=== PATIENT | female | born 1985 | race Two or more races ===

== ENCOUNTER 2024-07-13 03:38 | Inpatient (IN) | payer MEDICAID ==
[~2024-07-13] VITALS: Ht 170.2 cm; Wt 77.3 kg
[~2024-07-13 03:38] MED LIST: BENZ2TAB50 PO; GLIM1TAB PO; HAL5T PO; HYDR10SY18 PO; LISI20TA56 PO; RIS1T PO
--- NOTE | 2024-07-13 03:55 | ED.PDOC ---
History of Present Illness HPI Comments 39 year old female presents to the ED via EMS with a chief complaint of near syncope onset today (07/13/24). Mother states patient got up to use restroom, called out for mother due to patient not being able to walk, experienced near syncope episode. Mother states patient had been experiencing RT ear pain, he adache, nausea, constipation, loss of appetite for the past 4 days. Patient took Ibuprofen yesterday, had temporary relief of symptoms, has been refusing medication for the past 4 days. Upon ED arrival BS was 408, BP 90/50. Patient has a PMHx schizophrenia, is a poor historian. No other symptoms or modifying factors present at this time. Time Seen by MD: 03:50 Primary Care Provider: UNKNOWN Reviewed Notes: Medications, Allergies Allergies: Coded Allergies: NO KNOWN ALLERGIES (Unverified , 07/13/24) Home Meds Active Scripts Lisinopril (Lisinopril) 20 Mg Tab, 1 TAB PO DAILY for 30 Days, #30 TAB 5 Refills Prov:PORSHA ADEN MD 01/15/23 Glimepiride (Amaryl) 1 Mg Tab, 1 TAB PO BID for 30 Days, #60 TAB 5 Refills Prov:PORSHA ADEN MD 01/15/23 Hydroxyzine Hcl (Hydroxyzine Hcl) 10 Mg/5 Ml Syp, 10 MG PO TID for 30 Days, #90 TAB Prov:PORSHA ADEN MD 01/15/23 Risperidone (RisperDAL TABLET) 1 Mg Tb, 1 TAB PO QPM for 30 Days, #30 TAB 1 Refill Prov:PORSHA ADEN MD 01/15/23 Benztropine Mesylate (Benztropine Mesylate) 2 Mg Tab, 1 TAB PO BID for 30 Days, #60 TAB 1 Refill Prov:PORSHA ADEN MD 01/15/23 Haloperidol (Haldol) 5 Mg Tb, 1 TAB PO QPM for 30 Days, #30 TAB 1 Refill Prov:PORSHA ADEN MD 01/15/23 Information Source: Relative, Emergency Med Personnel Mode of Arrival: Ambulatory Severity: Moderate Timing: Days Duration: Since onset Prehospital treatment: IVF Past Medical History PAST MEDICAL HISTORY: Schizophrenia Surgical History: Unknown ASSOCIATE MEDICAL DIRECTOR History: Unknown Family History Family History: Unknown Social History Smoker: Non-Smoker Alcohol: Denies ETOH Use Drugs: Denies Drug Use Lives In: Home Constitutional: denies: chills, diaphoresis, fatigue, fever, malaise, sweats, weakness, others EENTM: reports: ear pain (RT); denies: blurred vision, double vision, ear blee ding, ear discharge, ear drainage, ear ringing, eye pain, eye redness, hearing loss, mouth pain, mouth swelling, nasal discharge, nose bleeding, nose congestion, nose pain, photophobia, tearing, throat pain, throat swelling, voice changes, others Respiratory: denies: cough, hemoptysis, orthopnea, SOB at rest, shortness of breath, SOB with excertion, stridor, wheezing, others Cardiovascular: denies: chest pain, dizzy spells, diaphoresis, Dyspnea on exertion, edema, irregular heart beat, left arm pain, lightheadedness, palpitations, PND, syncope, others Gastrointestinal: reports: constipated, nausea; denies: abdomen distended, abdominal pain, blood streaked bowels, diarrhea, dysphagia, difficulty swallowing, hematemesis, melena, poor appetite, poor fluid intake, rectal bleeding, rectal pain, vomiting, others Genitourinary: denies: abnormal vagina bleeding, burning, dyspareunia, dysuria, flank pain, frequency, hematuria, incontinence, pain, , vagina discharge, urgency, others Neurological: reports: headache, others (near syncope); denies: dizziness, fainting, left sided numbness, left sided weakness, numbness, paresthesia, pre- existing deficit, right sided numbness, right sided weakness, seizure, speech problems, tingling, tremors, weakness Musculoskeletal: denies: back pain, gout, joint pain, joint swelling, muscle pain, muscle stiffness, neck pain, others Integumetry: denies: bruises, change in color, change in hair/nails, dryness, laceration, lesions, lumps, rash, wounds, others Allergic/Immunocompromised: denies: Difficulty Healing, Frequent Infections, Hives, Itching, others Hematologic/Lymphatic: denies: anemia, blood clots, easy bleeding, easy bruising, swollen glands, others Endocrine: denies: excessive hunger, excessive sweating, excessive thirst, excessive urination, flushing, intolerance to cold, intolerance to heat, unexpla ined weight gain, unexplained weight loss, others Psychiatric: denies: anxiety, bipolar disorder, depression, hopeless, panic disorder, schizophrenia, sleepless, suicidal, others All Other Systems: Reviewed and Negative Physical Exam General Appearance: Normal HEENT: Normal ENT Inspection, Pharynx Normal, TMs Normal Neck: Full Range of Motion, Non-Tender, Normal, Normal Inspection Respiratory: Chest Non-Tender, Lungs Clear, No Accessory Muscle Use, No Respiratory Distress, Normal Breath Sounds Cardiovascular: No Edema, No JVD, No Murmur, No Gallop, Normal Peripheral Pulses, Regular Rate/Rhythm Breast Exam: Deferred Gastrointestinal: No Organomegaly, Non Tender, No Pulsatile Mass, Normal Bowel Sounds, Soft Genitalia: Deferred Pelvic: Deferred Rectal: Deferred Extremities: No calf tenderness, Normal capillary refill, Normal inspection, Normal range of motion, Non-tender, No pedal edema Musculoskeletal : Apperance: Normal Neurologic: Other (flat affect) Cerebellar Function: Normal Reflexes: Normal Skin: Dry, Normal Color, Warm Lymphatic: No Adenopathy Was a procedure done? Was a procedure done?: No Differential Dx Considerations may include: Differential diagnosis includes but is not limited to: cardiac arrythmia, dehydration, sepsis, electrolyte abnormality, symptomatic anemia, hypovolemia and others X-Ray, Labs, Meds, VS Vital Signs Date Time Temp Pulse Resp B/P (MAP) Pulse Ox O2 Delivery O2 Flow Rate FiO2 07/13/24 05:14 91 14 109/72 07/13/24 03:45 98.5 100 14 90/58 (69) 98 98.5 07/13/24 03:40 97 Lab Test 07/13/24 04:27 07/13/24 04:04 Range/Units POC Glucose 392 H 70-106 mg/dl White Blood Count 11.0 H 4.4-10.8 10^3/uL Red Blood Count 4.62 4.0-5.20 10^6/uL Hemoglobin 13.1 12.2-16.2 g/dL Hematocrit 38.7 36.0-46.0 % Mean Corpuscular Volume 83.8 80.0-100.0 fL Mean Corpuscular Hemoglobin 28.3 28.0-32.0 pg Mean Corpuscular Hemoglobin Concent 33.8 32.0-36.0 g/dL Red Cell Distribution Width 14.5 H 11.8-14.3 % Platelet Count 294 140-450 10^3/uL Mean Platelet Volume 9.2 6.9-10.8 fL Neutrophils (%) (Auto) 73.5 37.0-80.0 % Lymphocytes (%) (Auto) 10.9 10.0-50.0 % Monocytes (%) (Auto) 14.6 H 0.0-12.0 % Eosinophils (%) (Auto) 0.2 0.0-7.0 % Basophils (%) (Auto) 0.8 0.0-2.0 % Neutrophils # (Auto) 8.1 1.6-8.6 10 ^3/uL Lymphocytes # (Auto) 1.2 0.4-5.4 10 ^3/uL Monocytes # (Auto) 1.6 H 0-1.3 10 ^3/uL Eosinophils # (Auto) 0 0-0.8 10 ^3/uL Basophils # (Auto) 0.1 0-0.2 10 ^3/uL Nucleated Red Blood Cells 0.1 % Sodium Level 129 L 136-145 mmol/L Potassium Level 4.1 3.5-5.1 mmol/L Chloride Level 97 L 98-107 mmol/L Carbon Dioxide Level 24 20-31 mmol/L Anion Gap 8 5-15 Blood Urea Nitrogen 17 9-23 mg/dL Creatinine 1.13 H 0.550-1.02 mg/dL Glomerular Filtration Rate Calc 63 >90 mL/min BUN/Creatinine Ratio 15.0 10.0-20.0 Serum Glucose 415 *H 74-106 mg/dL Lactic Acid Level 1.4 0.4-2.0 mmol/L Calcium Level 9.0 8.7-10.4 mg/dL Total Bilirubin 0.3 0.2-1.0 mg/dL Aspartate Amino Transferase (AST) 31 13-40 U/L Alanine Aminotransferase (ALT) 53 H 7-40 U/L Alkaline Phosphatase 131 H 46-116 U/L Troponin I High Sensitivity < 3 L </=34 ng/L Total Protein 7.4 5.7-8.2 g/dL Albumin 4.1 3.2-4.8 g/dL Current Medications Medications (Trade) Dose Ordered Sig/Stefany Route Start Time Stop Time Status Last Admin Sodium Chloride 1,000 ml @ 1,000 mls/hr Q1H ONCE IVB 07/13/24 04:00 07/13/24 04:59 DC 07/13/24 04:29 Insulin Human Regular (InsuLIN R) 8 units ONCE ONCE SC 07/13/24 04:00 07/13/24 04:01 DC 07/13/24 04:35 Morphine Sulfate 4 mg ONCE ONCE IV 07/13/24 05:00 07/13/24 05:01 DC 07/13/24 05:14 Ondansetron HCl (Zofran) 4 mg ONCE ONCE IV 07/13/24 05:00 07/13/24 05:01 DC 07/13/24 05:14 Time of 1ST Reevaluation: 04:20 Reevaluation 1ST: Unchanged Patient Education/Counseling: Diagnosis, Treatment, Prognosis Family Education/Counseling: Diagnosis, Treatment, Prognosis Sepsis Sepsis Reasesment Focused Exam Orders: Laboratory Tests 07/13/24 04:04: Lactic Acid Level 1.4 Departure 1 Departure Time of Disposition: 05:18 Impression: Primary Impression: Uncontrolled diabetes mellitus Qualified Codes: E11.65 - Type 2 diabetes mellitus with hyperglycemia Additional Impressions: Near syncope Acute renal injury Dehydration Disposition: ADMITTED INPATIENT Admit to: Med Surg Condition: Guarded Comments Near Syncope with Hyperglycemia Chief Complaint: Near syncope History of Present Illness: 39-year-old female with history of autism and type 2 diabetes presents to the ED after experiencing a near-syncopal episode at home. While in the bathroom, the patient became very lightheaded while attempting to stand up after using the toilet. Her mother witnessed the event and helped ease her to the ground. Patient denies complete loss of consciousness or trauma. She reports associated dull, diffuse headache. Initial workup reveals significant hyperglycemia, mild hyponatremia, and borderline elevated creatinine suggesting acute kidney injury. Review of Systems: Constitutional: Near syncope, no loss of consciousness Neurological: Diffuse headache Otherwise negative or unable to obtain due to patient condition Medications: Unknown/Not provided in anthropology professor Allergies: No known allergies/Not provided in anthropology professor Past Medical History: 1. Type 2 Diabetes Mellitus 2. Autism / schizophrenia Lab Results: WBC: 11,000 (Elevated) Neutrophil count: Within normal limits, no left shift Sodium: 129 (Low) Blood glucose: 415 mg/dL (Severely elevated) Creatinine: 1.13 (Borderline elevated) Imaging and Other Relevant Results: CT Head: No acute intracranial pathology Medical Decision Making: Summary Statement: 39-year-old female with poorly controlled diabetes presents with near syncope, severe hyperglycemia, hyponatremia, and early acute kidney in [facility]. Problem List: 1. Near syncope 2. Severe hyperglycemia 3. Dehydration 4. Acute kidney injury 5. Hyponatremia Differential Diagnosis: 1. Orthostatic hypotension due to dehydration 2. Diabetic ketoacidosis 3. Hyperglycemic hyperosmolar state 4. Medication effect 5. Cardiac arrhythmia ED Course: Patient received IV fluids and insulin. Given constellation of symptoms and laboratory findings, decision made to admit for further management. Assessment and Plan: 1. Near Syncope: - Likely secondary to dehydration and hyperglycemia - Admit for monitoring and management 2. Severe Hyperglycemia (Blood glucose 415): - Started on insulin therapy - Will require intensive blood glucose monitoring - Diabetes medication adjustment during admission 3. Dehydration with Acute Kidney Injury: - IV fluid resuscitation initiated - Monitor fluid status and renal function 4. Disposition: - Admit to medical floor - Continue IV fluids and insulin therapy - Endocrinology consultation recommended Billing Information: ICD-10: R55 - Syncope and collapse ICD-10: E11.65 - Type 2 diabetes mellitus with hyperglycemia ICD-10: N17.9 - Acute kidney failure, unspecified ICD-10: E87.1 - Hypo-osmolality and hyponatremia Critical Care Note Critical Care Time?: No Stability Stability form required: No Heart Score Heart Score: Heart Score Response (Comments) Value History Slightly Suspicious 0 EKG Normal 0 Age <45 0 Risk Factors 1 or 2 risk factors 1 Troponin Normal limit 0 Total 1 I personally scribed for IESHA PUENTE MD ([email or web address]) on 07/13/24 at 03:55. Electronically submitted by Maribel Berrios ([email or web address]). I personally scribed for IESHA PUENTE MD ([email or web address]) on 07/13/24 at 04:12. Electronically submitted by Maribel Berrios ([email or web address]). IESHA PUENTE MD Jul 13, 2024 03:55
[2024-07-13 04:17] VITALS: PULSE 100; RESP 19; TEMP 97.9; O2SAT 93
[2024-07-13 04:23] LABS: Basophils # (auto) 0.1 10 ^3/uL (0-0.2); Basophils % (auto) 0.8 % (0.0-2.0); Eosinophils # (auto) 0 10 ^3/uL (0-0.8); Eosinophils % (auto) 0.2 % (0.0-7.0); Hematocrit 38.7 % (36.0-46.0); Hemoglobin 13.1 g/dL (12.2-16.2); Lymphocytes # (auto) 1.2 10 ^3/uL (0.4-5.4); Lymphocytes % (auto) 10.9 % (10.0-50.0); Mean Corpuscular Hemoglobin 28.3 pg (28.0-32.0); Mean Corpuscular Hgb Conc. 33.8 g/dL (32.0-36.0); Mean Corpuscular Volume 83.8 fL (80.0-100.0); Monocytes # (auto) 1.6 10 ^3/uL (0-1.3); Monocytes % (auto) 14.6 % (0.0-12.0); Neutrophils # (auto) 8.1 10 ^3/uL (1.6-8.6); Neutrophils % (auto) 73.5 % (37.0-80.0); Nucleated Red Blood Cells % 0.1 %; Platelet Count (auto) 294 10^3/uL (140-450); Red Blood Cells 4.62 10^6/uL (4.0-5.20); Red Cell Distribution Width 14.5 % (11.8-14.3)
[2024-07-13] MEDS: SODIUM CHLORIDE 0.9% 1,000 ML IVB ONE (04:29)
--- NOTE | 2024-07-13 04:32 | ECG ---
[facility] Test Date: 2024-07-13 Test Time: 03:40:15 Pat Name: HORACIO FLYNN Department: ED Room: [address] [place] [address] Gender: F Personal Injury Specialist: EPI : [id number] Requested By: IESHA PUENTE Order Number: [id number] Reading MD: Gilbert Atkinson Measurements Intervals [place] Rate: 97 P: 37 IA: 143 QRS: 43 QRSD: 84 T: 55 QT: 359 QTc: 456 Interpretive Statements Sinus rhythm Baseline wander in lead(s) V1 Electronically Signed On 07-13-2024 9:35:45 PDT by Gilbert Atkinson Please click the below link to view image of tracing.
[2024-07-13] MEDS: InsuLIN REG 1unit/0.01ml Soln (100units/ml) SC ONE (04:35)
[2024-07-13 04:38] LABS: Albumin 4.1 g/dL (3.2-4.8); Anion Gap 8 (5-15); Aspartate Aminotransferase 31 U/L (13-40); Blood Urea Nitrogen 17 mg/dL (9-23); Carbon Dioxide 24 mmol/L (20-31); Potassium 4.1 mmol/L (3.5-5.1); Total Protein 7.4 g/dL (5.7-8.2)
[2024-07-13 04:44] LABS: Alanine Aminotransferase 53 U/L (7-40); Alkaline Phosphatase 131 U/L (46-116); Bilirubin, Total 0.3 mg/dL (0.2-1.0); Chloride 97 mmol/L (98-107); Sodium 129 mmol/L (136-145)
[2024-07-13 04:45] LABS: Glucose 415 mg/dL (74-106)
[2024-07-13] MEDS: ONDANSETRON HCL 4 MG/2 ML VIAL IV ONE (05:14)
[2024-07-13] MEDS: MORPHINE SULFATE 4 MG/ML SYR/VIAL IV ONE (05:14)
--- NOTE | 2024-07-13 05:18 | DVH ---
EXAM: CT HEAD WITHOUT CONTRAST INDICATION: severe headache TECHNIQUE: CT of the head without intravenous contrast. Coronal and sagittal reformatted images are s ubmitted. Radiation Dose : 1. Head: CT Dose: CTDI volume is 55.8 mGy. Dose-length product is 987 mGy*cm The dose indicators for CT are the volume Computed Tomography (CT) Dose Index (CTDIvol) and the Dose Length Product (DLP), and are measured in units of mGy and mGy-cm, respectively. These indicators are not patient dose, but values generated from the CT scanner acquisition factors. The report includes radiation exposure data for exposures received during this examination. All CT scans at this medical facility are performed using dose modulation techniques as appropriate to a performed exam including the following: Automated exposure control was utilized; adjustment of the MA and/or KV according to patient size; and use of iterative reconstruction technique. COMPARISON: None FINDINGS: There is no evidence of acute intracranial hemorrhage, extra-axial collection, mass effect, midline s hift, herniation or hydrocephalus. The ventricles, sulci and cisterns are age appropriate. The tejeda-white differentiation is intact. The visualized paranasal sinuses and mastoid air cells are clear. No depressed calvarial fracture. The surrounding soft tissues are unremarkable. IMPRESSION: 1. No acute intracranial abnormality.
[2024-07-13] MEDS: ACETAMINOPHEN 500 MG TAB or CAP PO ONE (05:27)
[2024-07-13] MEDS: KETOROLAC TROMETH 30 MG/ML 1ML VIAL IV ONE (05:43)
[2024-07-13] MEDS: SODIUM CHLORIDE 0.9% 1,000 ML IV ONE (05:44)
[2024-07-13 06:00] VITALS: BP 118/85; PULSE 100; RESP 12; O2SAT 97
[2024-07-13] MEDS ORDERED: ACETAMINOPHEN 325 MG TAB PO PRN (07:00)
[2024-07-13] MEDS ORDERED: ONDANSETRON HCL 4 MG/2 ML VIAL IV PRN (07:00)
[2024-07-13] MEDS ORDERED: DEXTROSE (50%) 50ML SYRG IV PRN (07:00)
--- NOTE | 2024-07-13 07:15 | DVHHP2 ---
History of Present Illness Reason for Visit: Syncope History of Present Illness Ida Martinez is a 39-year-old female with past medical history of hypertension, diabetes, autism, and schizophrenia who presents to the ED with headache, nausea, constipation, and weakness that started today at 3:00 a.m. Patient's mom at the bedside Dimple also stated that she has not been eating very well for the last 4 days. Patient mom's states that the patient does not really speak. Patient's mom also states that the patient does not use any DMEs. She also endorsed that patient does not take Seroquel as it causes bad side effects. Mom states that the headache was pretty bad which is why she brought the patient in however upon examination patient endorses 0 pain. Also asked and encouraged mom in patient to give a urine sample to rule out ot her causes. Patient lives with mom and reports that she does not smoke, drink, or uses illicit drugs. Patient and mom deny any chest pain, shortness of breath, fever, chills, lightheadedness, weakness, dizziness, recent sick contacts, recent travels, recent ingestion of spoiled food, recent trauma or injury, abdominal pain, vomiting, or diarrhea. Cardiovascular: HTN Psych: Other (Autism), Schizophrenia Endocrine: Diabetes Past Surgical History: None Family History: DM, Hypertension, Other (Mom and dad with diabetes and hyper tension) Smoke: No ALCOHOL: none Drugs: None Lives: with Family Domestic Violence: Neg Review of Systems Constitutional: Yes: Other (Headache and loss of appetite) Gastrointestinal: Nausea, Constipation Allergies: Coded Allergies: NO KNOWN ALLERGIES (Unverified , 07/13/24) Exam Vital Signs Vital Signs Date Time Temp Pulse Resp B/P (MAP) Pulse Ox O2 Delivery O2 Flow Rate FiO2 07/13/24 06:00 100 12 118/85 (96) 97 07/13/24 04:17 Room Air* 0 21 07/13/24 04:17 97.9 97.9 General Appearance: Alert, Cooperative, No acute distress HEENT: Atraumatic, Mucous membr. moist/pink Respiratory: Normal air movement Cardiovascular: Regular rate, Normal S1, Normal S2, No murmurs Abdominal: Normal bowel sounds, Soft Extremities: No clubbing, No cyanosis, No edema, Normal pulses Skin: No significant lesion Neuro: Normal tone, Sensation intact Labs/Xrays Labs Test 07/13/24 05:05 07/13/24 04:27 07/13/24 04:04 Range/Units Troponin I High Sensitivity 3 L </=34 ng/L POC Glucose 392 H 70-106 mg/dl White Blood Count 11.0 H 4.4-10.8 10^3/uL Red Blood Count 4.62 4.0-5.20 10^6/uL Hemoglobin 13.1 12.2-16.2 g/dL Hematocrit 38.7 36.0-46.0 % Mean Corpuscular Volume 83.8 80.0-100.0 fL Mean Corpuscular Hemoglobin 28.3 28.0-32.0 pg Mean Corpuscular Hemoglobin Concent 33.8 32.0-36.0 g/dL Red Cell Distribution Width 14.5 H 11.8-14.3 % Platelet Count 294 140-450 10^3/uL Mean Platelet Volume 9.2 6.9-10.8 fL Neutrophils (%) (Auto) 73.5 37.0-80.0 % Lymphocytes (%) (Auto) 10.9 10.0-50.0 % Monocytes (%) (Auto) 14.6 H 0.0-12.0 % Eosinophils (%) (Auto) 0.2 0.0-7.0 % Basophils (%) (Auto) 0.8 0.0-2.0 % Neutrophils # (Auto) 8.1 1.6-8.6 10 ^3/uL Lymphocytes # (Auto) 1.2 0.4-5.4 10 ^3/uL Monocytes # (Auto) 1.6 H 0-1.3 10 ^3/uL Eosinophils # (Auto) 0 0-0.8 10 ^3/uL Basophils # (Auto) 0.1 0-0.2 10 ^3/uL Nucleated Red Blood Cells 0.1 % Sodium Level 129 L 136-145 mmol/L Potassium Level 4.1 3.5-5.1 mmol/L Chloride Level 97 L 98-107 mmol/L Carbon Dioxide Level 24 20-31 mmol/L Anion Gap 8 5-15 Blood Urea Nitrogen 17 9-23 mg/dL Creatinine 1.13 H 0.550-1.02 mg/dL Glomerular Filtration Rate Calc 63 >90 mL/min BUN/Creatinine Ratio 15.0 10.0-20.0 Serum Glucose 415 *H 74-106 mg/dL Lactic Acid Level 1.4 0.4-2.0 mmol/L Calcium Level 9.0 8.7-10.4 mg/dL Total Bilirubin 0.3 0.2-1.0 mg/dL Aspartate Amino Transferase (AST) 31 13-40 U/L Alanine Aminotransferase (ALT) 53 H 7-40 U/L Alkaline Phosphatase 131 H 46-116 U/L Total Protein 7.4 5.7-8.2 g/dL Albumin 4.1 3.2-4.8 g/dL EXAM: CT HEAD WITHOUT CONTRAST INDICATION: severe headache TECHNIQUE: CT of the head without intravenous contrast. Coronal and sagittal reformatted images are submitted. Radiation Dose : 1. Head: CT Dose: CTDI volume is 55.8 mGy. Dose-length product is 987 mGy*cm The dose indicators for CT are the volume Computed Tomography (CT) Dose Index (CTDIvol) and the Dose Length Product (DLP), and are measured in units of mGy and mGy-cm, respectively. These indicators are not patient dose, but values generated from the CT scanner acquisition factors. The report includes radiation exposure data for exposures received during this examination. All CT scans at this medical facility are performed using dose modulation techniques as appropriate to a performed exam including the following: Automated exposure control was utilized; adjustment of the MA and/or KV according to patient size; and use of iterative reconstruction technique. COMPARISON: None FINDINGS: There is no evidence of acute intracranial hemorrhage, extra-axial collection, mass effect, midline shift, herniation or hydrocephalus. The ventricles, sulci and cisterns are age appropriate. The tejeda-white differentiation is intact. The visualized paranasal sinuses and mastoid air cells are clear. No depressed calvarial fracture. The surrounding soft tissues are unremarkable. IMPRESSION: 1. No acute intracranial abnormality. Assessment/Plan Assessment/Plan Assessment Autonomic imbalance Diabetes type 2 uncontrolled Leukocytosis rule out sepsis secondary to pneumonia versus UTI versus other etiology Intractable headache with nausea and constipation General loss of appetite Hyponatremia History of hypertension History of autism History of schizophrenia Plan Admit to med surge Antiemetics Pain management NS [address] head noted UA Troponins IV antibiotics-ceftriaxone Hemoglobin A1c ISS and Accu-Cheks Lactic negative EKG noted Blood cultures IV fluids Diet Dietary consult KUB ordered CXR ordered Bowel regimen Home medications reconciled DVT prophylaxis-Lovenox PUD prophylaxis-not indicated no history of GERD or GI bleed Discussed plan of care with patient, patient's mom, and nurse Plan discussed with: Other My Orders Orders - MICHELLE DE OLIVEIRA Procedure Category Date Status Time Admit ADMIT 07/13/24 Verified 06:48 Allergies ENMA 07/13/24 Verified 06:48 Code Status CODE 07/13/24 Verified 06:48 0.9% Ns 1000 Ml PHA 07/13/24 Verified 07:00 Ondansetron Hcl PHA 07/13/24 Verified (Zofran) 07:00 Complete Blood Count LAB 07/14/24 Verified 04:00 Comprehensive LAB 07/14/24 Verified Metabolic Panel 04:00 Cardiac DIET 07/13/24 Verified Diet-2gna,Lofat,Lochol Breakfast Acetaminophen Tablet PHA 07/13/24 Verified (Tylenol Tablet) 07:00 Date of Service: Jul 13, 2024 Billing Provider: MICHELLE DE OLIVEIRA Common Visit Codes: [id number] INP/OBS CARE (HIGH) MICHELLE DE OLIVEIRA Jul 13, 2024 07:15
[2024-07-13] MEDS: ACCU-CHEK COMFORT CURVE STRIP VI SCH (07:23)
[2024-07-13] MEDS: SODIUM CHLORIDE 0.9% 1,000 ML IV SCH (07:26)
[2024-07-13 07:39] LABS: Urine Bacteria None Seen /hpf (None Seen)
[2024-07-13 07:49] LABS: Urine Blood 3+ /uL (Negative); Urine Clarity Turbid (Clear); Urine Color Colorless (Yellow); Urine Protein, UAD Negative (Negative); Urine Specific Gravity 1.015 (1.001-1.035); Urine Squamous Epithelial Cell FEW /hpf (<5); Urine Urobilinogen Normal (Negative); Urine WBC 48 /HPF (0-5); Urine pH 5.5 (5.0-9.0)
[2024-07-13] MEDS: InsuLIN REG 1unit/0.01ml Soln (100units/ml) SC SCH (08:00)
--- NOTE | 2024-07-13 08:15 | DVH ---
EXAM: XY CHEST XRAY 1 VIEW Indication: Pain; r/o pna Technique: Single frontal view of the chest was obtained Comparison: XY CHEST PORTABLE on DOS: 01/15/23 FINDINGS: Lines and Tubes: None Lungs: No focal consolidation. Pleura: No effusion. No pneumothorax. Cardiomediastinal contours: Unremarkable Bones: No acute osseous abnormality. IMPRESSION: No acute cardiopulmonary disease.
[2024-07-13] MEDS: cefTRIAXone 1GM/50ML D5W 50 ML IV SCH (09:00)
[2024-07-13] MEDS ORDERED: BENZTROPINE MESY 0.5 MG TAB PO SCH (10:00)
[2024-07-13] MEDS ORDERED: LISINOPRIL 20 MG TAB PO SCH (10:00)
[2024-07-13] MEDS ORDERED: ENOXAPARIN SOD 40 MG/0.4 ML SYRINGE SC SCH (10:00)
[2024-07-13] MEDS ORDERED: POLYETHYLENE GLYCOL 17 GM PWDR PO SCH (10:00)
[2024-07-13] MEDS ORDERED: hydrOXYzine HCL 10 MG TAB PO SCH (14:00)
[2024-07-13] MEDS ORDERED: HALOPERIDOL 5 MG TAB PO SCH (18:00)
[2024-07-13] MEDS ORDERED: risperiDONE 1 MG TAB PO SCH (18:00)
[2024-07-13] MEDS ORDERED: SENNA 8.6 MG TAB PO SCH (22:00)
== END 2024-07-13 09:47 | disposition left against medical advice (07) | DRG 720 ==
LOC: EDUNIT# 03:38 → EDBD 03:38 → ER 03:38 → OVERFLOW 06:48
PROVIDERS: ADMIT Hospitalist; ATTEND Hospitalist
DX: A41.9 Sepsis, unspecified organism (principal); N17.9 Acute kidney failure, unspecified; J18.9 Pneumonia, unspecified organism; G90.89 Other disorders of autonomic nervous system; E87.1 Hypo-osmolality and hyponatremia; Z53.29 Procedure and treatment not carried out because of patient's decision for other reasons; N39.0 Urinary tract infection, site not specified; I10 Essential (primary) hypertension; E11.9 Type 2 diabetes mellitus without complications; K59.00 Constipation, unspecified; F20.9 Schizophrenia, unspecified; E86.0 Dehydration; Z79.899 Other long term (current) drug therapy; Z83.3 Family history of diabetes mellitus; Z82.49 Family history of ischemic heart disease and other diseases of the circulatory system
CPT/HCPCS: 36415; 70450; 71045; 80053; 81001; 82962; 83605; 84484; 85025; 87040; 93005; 96361; 96372; 96374; G0378; J1815; J1885; J2405